=== PATIENT | male | born 1970 | race Caucasian/White ===

== ENCOUNTER → 2024-03-28 14:33 | Outpatient (REF) | payer BC, SELFPAY ==
--- NOTE | 2024-03-28 15:34 | CARDSERVLU ---
Echocardiogram with Lumason completed after protocol screening completed. Allergies verified.
Patent IV site: __left AC___
IV site flushed with 0.9% NaCl pre and post administration.
Diluted bolus method utilized to enhance visualization of ventricular frank.
Total volume given: ___2.0_ mL
Patient tolerated all procedures well without complications.
#22 darrius placed left AC. Lumason given. INT removed. pressure held. No bleeding noted
== END ==
LOC: RCS 14:33
PROVIDERS: ATTENDING PHYSICIAN Nurse Practitioner Gerontology; FAMILY PHYSICIAN Family Medicine
DX: R07.9 Chest pain, unspecified (principal); E66.01 Morbid (severe) obesity due to excess calories
CPT/HCPCS: 93306; Q9950

== ENCOUNTER → 2024-04-10 08:07 | Outpatient (REF) | payer BC, SELFPAY | LOC: PET 08:07 | PROVIDERS: ATTENDING PHYSICIAN Nurse Practitioner Gerontology | DX: R07.9 Chest pain, unspecified (principal); E66.01 Morbid (severe) obesity due to excess calories | CPT/HCPCS: 78431; A9555; J2785 ==

== ENCOUNTER → 2024-04-20 09:53 | Outpatient (REF) | payer BC, SELFPAY | LOC: RAD 09:53 | PROVIDERS: ATTENDING PHYSICIAN Student in an Organized Health Care Education/Training Program; FAMILY PHYSICIAN Family Medicine | DX: L92.0 Granuloma annulare (principal); M25.60 Stiffness of unspecified joint, not elsewhere classified; M79.10 Myalgia, unspecified site; R31.29 Other microscopic hematuria; Z11.1 Encounter for screening for respiratory tuberculosis; R70.0 Elevated erythrocyte sedimentation rate; Z11.59 Encounter for screening for other viral diseases; Z51.81 Encounter for therapeutic drug level monitoring; Z79.52 Long term (current) use of systemic steroids | CPT/HCPCS: 71046; 73120 ==

== ENCOUNTER → 2024-06-04 08:08 | Outpatient (REF) | payer BC, SELFPAY | LOC: RAD 08:08 | PROVIDERS: ATTENDING PHYSICIAN Student in an Organized Health Care Education/Training Program; FAMILY PHYSICIAN Family Medicine | DX: L92.0 Granuloma annulare (principal); M25.60 Stiffness of unspecified joint, not elsewhere classified; R21 Rash and other nonspecific skin eruption; R70.0 Elevated erythrocyte sedimentation rate; Z79.52 Long term (current) use of systemic steroids; Z91.89 Other specified personal risk factors, not elsewhere classified | CPT/HCPCS: 71270; 74178; Q9967 ==

== ENCOUNTER → 2024-06-25 08:33 | Outpatient (REF) | payer BC, SELFPAY | LOC: RAD 08:33 | PROVIDERS: ATTENDING PHYSICIAN Student in an Organized Health Care Education/Training Program; FAMILY PHYSICIAN Family Medicine | DX: L92.0 Granuloma annulare (principal); M25.60 Stiffness of unspecified joint, not elsewhere classified; R21 Rash and other nonspecific skin eruption; R70.0 Elevated erythrocyte sedimentation rate | CPT/HCPCS: 77080 ==